=== PATIENT | male | born 1970 | race Caucasian/White ===

== ENCOUNTER 2021-11-09 12:12 | Inpatient (IN) | payer OTHER ==
[2021-11-09] MEDS ORDERED: BISMUTH SUBSALICYLATE 524 MG/30 ML PO PRN (12:41)
[2021-11-09] MEDS ORDERED: NICOTINE 10 MG CARTRIDGE (INHALER) IH PRN (12:41)
[2021-11-09] MEDS ORDERED: MAGNESIUM CITRATE 300 ML BOTTLE PO PRN (12:41)
[2021-11-09] MEDS ORDERED: LOPERAMIDE HCL 2 MG CAPSULE PO PRN (12:41)
[2021-11-09] MEDS ORDERED: MAGNESIUM HYDROX 2400MG/30ML ORAL SUSPENSION 30 ML CUP PO PRN (12:41)
[2021-11-09] MEDS ORDERED: MAG HYDROX/AL HYDROX/SIMETH 30 ML UNIT-DOSE CUP PO PRN (12:41)
[2021-11-09] MEDS ORDERED: ONDANSETRON *ODT* 4 MG TABLET SL PRN (12:41)
[2021-11-09] MEDS ORDERED: DICYCLOMINE HCL 10 MG CAPSULE PO PRN (12:41)
[2021-11-09] MEDS ORDERED: BENZOCAINE/MENTHOL (CHLORASEPTIC ) LOZENGE MM PRN (12:41)
[2021-11-09] MEDS ORDERED: ACETAMINOPHEN 325 MG TABLET (FP) PO PRN (12:41)
[2021-11-09 13:20] VITALS: BMI 35.2
[2021-11-09] MEDS: diazePAM 5 MG TABLET PO PRN (14:08)
[2021-11-09] MEDS: hydrOXYzine PAMOATE 25 MG CAPSULE (FP) PO SCH ×3 (14:09→22:38)
[2021-11-09] MEDS: PRENATAL VITAMINS W/ FOLIC ACID TABLET (FP) PO SCH (14:09)
[2021-11-09] MEDS: NICOTINE 14 MG/24 HOURS TOPICAL PATCH TD SCH (14:14)
[2021-11-09] MEDS: diazePAM 5 MG TABLET PO SCH ×2 (18:37→22:37)
[2021-11-09] MEDS: IBUPROFEN 400 MG TABLET (FP) PO PRN (18:40)
[2021-11-09] MEDS: THIAMINE HCL 100 MG TABLET (FP) PO SCH (22:36)
[2021-11-09] MEDS: METHOCARBAMOL 500 MG TABLET PO PRN (22:36)
[2021-11-09] MEDS: MELATONIN 5 MG TABLETS PO SCH (22:37)
[2021-11-10] MEDS: diazePAM 5 MG TABLET PO SCH ×4 (05:40→22:23)
[2021-11-10] MEDS: hydrOXYzine PAMOATE 25 MG CAPSULE (FP) PO SCH ×5 (05:40→22:23)
[2021-11-10] MEDS: IBUPROFEN 400 MG TABLET (FP) PO PRN ×2 (10:19→18:10)
[2021-11-10] MEDS: PRENATAL VITAMINS W/ FOLIC ACID TABLET (FP) PO SCH (10:21)
[2021-11-10] MEDS: NICOTINE 14 MG/24 HOURS TOPICAL PATCH TD SCH (10:22)
[2021-11-10 13:45] LABS: HEMATOCRIT 40.4 % (35.4-49); HEMOGLOBIN 13.4 GM/dL (11.7-16.9); MCH 29.7 pg (25.7-33.7); MCHC 33.2 g/dl (32.0-35.9); MEAN CELL VOLUME 89.7 fl (80-96); MEAN PLT VOLUME 7.9 fl (7.5-11.1); PLATELET COUNT 246 10^3/uL (134-434); RDW 14.6 % (11.9-15.9); WHITE BLOOD COUNT 11.5 K/mm3 (4.0-10.0)
[2021-11-10 13:51] LABS: CALCIUM 8.6 mg/dL (8.5-10.1)
[2021-11-10 13:55] LABS: CREATININE 0.7 mg/dL (0.55-1.3)
[2021-11-10 13:57] LABS: TOT PROT 6.1 g/dl (6.4-8.2)
[2021-11-10 14:11] LABS: BILIRUBIN,TOTAL 0.4 mg/dL (0.2-1)
[2021-11-10 15:18] LABS: BLOOD UREA NITROGEN 17.5 mg/dL (7-18)
[2021-11-10] MEDS: MELATONIN 5 MG TABLETS PO SCH (22:23)
[2021-11-10] MEDS: THIAMINE HCL 100 MG TABLET (FP) PO SCH (22:23)
[2021-11-11] MEDS: hydrOXYzine PAMOATE 25 MG CAPSULE (FP) PO SCH ×5 (05:42→23:27)
[2021-11-11] MEDS: diazePAM 5 MG TABLET PO SCH ×3 (05:43→22:28)
[2021-11-11] MEDS: ACETAMINOPHEN 325 MG TABLET (FP) PO PRN ×2 (10:28→22:27)
[2021-11-11] MEDS: PRENATAL VITAMINS W/ FOLIC ACID TABLET (FP) PO SCH (10:28)
[2021-11-11] MEDS: METHOCARBAMOL 500 MG TABLET PO PRN (10:29)
[2021-11-11] MEDS: diazePAM 5 MG TABLET PO PRN (10:29)
[2021-11-11] MEDS: NICOTINE 14 MG/24 HOURS TOPICAL PATCH TD SCH (10:30)
[2021-11-11] MEDS ORDERED: ALBUTEROL SO4 HFA INHALER IH PRN (11:21)
[2021-11-11] MEDS: LIDOCAINE 5% TOPICAL PATCH TP SCH (12:51)
[2021-11-11] MEDS: METHYL SALICYLATE/MENTHOL OINT 30 GM TUBE TP SCH ×2 (12:54→22:30)
[2021-11-11 14:07] LABS: SARS-CoV-2 NAA Not Detected (Not Detected)
[2021-11-11] MEDS: THIAMINE HCL 100 MG TABLET (FP) PO SCH (22:26)
[2021-11-11] MEDS: MELATONIN 5 MG TABLETS PO SCH (22:28)
[2021-11-11] MEDS: LIDOCAINE PATCH REMOVAL MC SCH (22:29)
[2021-11-12] MEDS: diazePAM 5 MG TABLET PO SCH ×2 (05:48→18:08)
[2021-11-12] MEDS: hydrOXYzine PAMOATE 25 MG CAPSULE (FP) PO SCH ×5 (05:48→22:22)
[2021-11-12] MEDS: ACETAMINOPHEN 325 MG TABLET (FP) PO PRN (05:49)
[2021-11-12] MEDS: METHOCARBAMOL 500 MG TABLET PO PRN ×2 (10:03→18:08)
[2021-11-12] MEDS: PRENATAL VITAMINS W/ FOLIC ACID TABLET (FP) PO SCH (10:03)
[2021-11-12] MEDS: LIDOCAINE 5% TOPICAL PATCH TP SCH (10:03)
[2021-11-12] MEDS: NICOTINE 14 MG/24 HOURS TOPICAL PATCH TD SCH (10:03)
[2021-11-12] MEDS: METHYL SALICYLATE/MENTHOL OINT 30 GM TUBE TP SCH ×2 (10:03→22:47)
[2021-11-12 10:29] LABS: HEMATOCRIT 40.5 % (35.4-49); HEMOGLOBIN 13.7 GM/dL (11.7-16.9); MCH 30.4 pg (25.7-33.7); MCHC 33.8 g/dl (32.0-35.9); MEAN CELL VOLUME 89.8 fl (80-96); MEAN PLT VOLUME 7.7 fl (7.5-11.1); PLATELET COUNT 237 10^3/uL (134-434); RBC 4.51 M/mm3 (4.00-5.60); RDW 15.1 % (11.9-15.9)
[2021-11-12] MEDS ORDERED: IBUPROFEN 400 MG TABLET (FP) PO ONE (14:45)
[2021-11-12] MEDS: MELATONIN 5 MG TABLETS PO SCH (22:20)
[2021-11-12] MEDS: THIAMINE HCL 100 MG TABLET (FP) PO SCH (22:21)
[2021-11-12] MEDS: IBUPROFEN 400 MG TABLET (FP) PO PRN (22:23)
[2021-11-12] MEDS: LIDOCAINE PATCH REMOVAL MC SCH (22:24)
[2021-11-13] MEDS: IBUPROFEN 400 MG TABLET (FP) PO PRN (05:47)
[2021-11-13] MEDS: hydrOXYzine PAMOATE 25 MG CAPSULE (FP) PO SCH ×2 (05:47→10:19)
[2021-11-13] MEDS ORDERED: diazePAM 5 MG TABLET PO ONE (06:00)
[2021-11-13 09:11] VITALS: BP 155/77; PULSE 122; TEMP 98.1
[2021-11-13] MEDS ORDERED: risperiDONE 2 MG TABLET PO SCH (10:00)
[2021-11-13] MEDS: LIDOCAINE 5% TOPICAL PATCH TP SCH (10:18)
[2021-11-13] MEDS: METHOCARBAMOL 500 MG TABLET PO PRN (10:19)
[2021-11-13] MEDS: PRENATAL VITAMINS W/ FOLIC ACID TABLET (FP) PO SCH (10:19)
[2021-11-13] MEDS: METHYL SALICYLATE/MENTHOL OINT 30 GM TUBE TP SCH (10:20)
[2021-11-13] MEDS: NICOTINE 14 MG/24 HOURS TOPICAL PATCH TD SCH (10:21)
== END 2021-11-13 12:07 | disposition other institution (70) | DRG 775 ==
LOC: YASAS 12:12 → Y6N 13:23
PROVIDERS: ADMIT Allergy & Immunology; ATTEND Surgery
PROC: HZ2ZZZZ Detoxification Services for Substance Abuse Treatment (ICD-10-PCS; principal; 2021-11-09)
DX: F10.230 Alcohol dependence with withdrawal, uncomplicated (principal); F13.20 Sedative, hypnotic or anxiolytic dependence, uncomplicated; F12.20 Cannabis dependence, uncomplicated; F17.210 Nicotine dependence, cigarettes, uncomplicated; F19.282 Other psychoactive substance dependence with psychoactive substance-induced sleep disorder; F20.9 Schizophrenia, unspecified; H91.91 Unspecified hearing loss, right ear; E78.5 Hyperlipidemia, unspecified; J45.909 Unspecified asthma, uncomplicated; D72.829 Elevated white blood cell count, unspecified; Z87.820 Personal history of traumatic brain injury; Z59.01 Sheltered homelessness; Z56.0 Unemployment, unspecified
CPT/HCPCS: 36415; 80053; 85027; 86780; 87811; C9803-CS; U0003; U0005

== ENCOUNTER 2021-11-13 12:20 | Inpatient (IN) | payer OTHER ==
[2021-11-13] MEDS ORDERED: IBUPROFEN 400 MG TABLET (FP) PO PRN (13:12)
[2021-11-13] MEDS ORDERED: MAGNESIUM HYDROX 2400MG/30ML ORAL SUSPENSION 30 ML CUP PO PRN (13:12)
[2021-11-13] MEDS ORDERED: ACETAMINOPHEN 325 MG TABLET (FP) PO PRN (13:12)
[2021-11-13] MEDS ORDERED: P-EPHED 60MG/TRIPROLIDI 2.5MG TABLET PO PRN (13:12)
[2021-11-13] MEDS ORDERED: BENZOCAINE/MENTHOL (CHLORASEPTIC ) LOZENGE MM PRN (13:12)
[2021-11-13] MEDS ORDERED: guaiFENesin 200 MG/10 ML 10 ML UNIT-DOSE CUPS PO PRN (13:12)
[2021-11-13] MEDS ORDERED: LOPERAMIDE HCL 2 MG CAPSULE PO PRN (13:12)
[2021-11-13] MEDS ORDERED: MAGNESIUM CITRATE 300 ML BOTTLE PO PRN (13:12)
[2021-11-13] MEDS ORDERED: MAG HYDROX/AL HYDROX/SIMETH 30 ML UNIT-DOSE CUP PO PRN (13:12)
[2021-11-13] MEDS: THIAMINE HCL 100 MG TABLET (FP) PO SCH (21:06)
[2021-11-13] MEDS: MELATONIN 5 MG TABLETS PO PRN (21:06)
[2021-11-14] MEDS: PRENATAL VITAMINS W/ FOLIC ACID TABLET (FP) PO SCH (10:23)
[2021-11-14] MEDS: risperiDONE 2 MG TABLET PO SCH (10:23)
[2021-11-14] MEDS: THIAMINE HCL 100 MG TABLET (FP) PO SCH (22:55)
[2021-11-15] MEDS: PRENATAL VITAMINS W/ FOLIC ACID TABLET (FP) PO SCH (10:33)
[2021-11-15] MEDS: risperiDONE 2 MG TABLET PO SCH (10:34)
[2021-11-15] MEDS ORDERED: PERMETHRIN 5% TOPICAL CREAM 60 GM TUBE TP ONE (14:45)
[2021-11-15] MEDS: MELATONIN 5 MG TABLETS PO PRN (21:53)
[2021-11-15] MEDS: THIAMINE HCL 100 MG TABLET (FP) PO SCH (21:53)
[2021-11-16] MEDS: PRENATAL VITAMINS W/ FOLIC ACID TABLET (FP) PO SCH (10:54)
[2021-11-16] MEDS: risperiDONE 2 MG TABLET PO SCH (10:54)
[2021-11-16] MEDS: THIAMINE HCL 100 MG TABLET (FP) PO SCH (21:34)
[2021-11-16] MEDS: MELATONIN 5 MG TABLETS PO PRN (21:34)
[2021-11-17] MEDS: risperiDONE 2 MG TABLET PO SCH (09:46)
[2021-11-17] MEDS: PRENATAL VITAMINS W/ FOLIC ACID TABLET (FP) PO SCH (09:46)
[2021-11-17] MEDS: THIAMINE HCL 100 MG TABLET (FP) PO SCH (23:08)
[2021-11-18] MEDS: risperiDONE 2 MG TABLET PO SCH (10:05)
[2021-11-18] MEDS: PRENATAL VITAMINS W/ FOLIC ACID TABLET (FP) PO SCH (10:05)
[2021-11-18] MEDS: MELATONIN 5 MG TABLETS PO PRN (21:36)
[2021-11-18] MEDS: THIAMINE HCL 100 MG TABLET (FP) PO SCH (21:36)
[2021-11-19 06:48] VITALS: TEMP 97.5
[2021-11-19] MEDS: PRENATAL VITAMINS W/ FOLIC ACID TABLET (FP) PO SCH (09:51)
[2021-11-19] MEDS: risperiDONE 2 MG TABLET PO SCH (09:51)
[2021-11-19 09:54] VITALS: BP 130/89; PULSE 100
== END 2021-11-19 12:40 | disposition home or self-care (01) | DRG 772 ==
LOC: YASAS 12:20 → Y3W 12:21
PROVIDERS: ADMIT Allergy & Immunology; ATTEND Psychiatry & Neurology Pain Medicine
PROC: HZ42ZZZ Group Counseling for Substance Abuse Treatment, Cognitive-Behavioral (ICD-10-PCS; principal; 2021-11-13)
DX: F10.20 Alcohol dependence, uncomplicated (principal); F12.20 Cannabis dependence, uncomplicated; F17.210 Nicotine dependence, cigarettes, uncomplicated; F20.9 Schizophrenia, unspecified
CPT/HCPCS: C9803-CS; U0003; U0005